=== PATIENT | male | born 1950 | race African-American/Black ===

== ENCOUNTER 2018-10-04 15:00 | Emergency (ER) | payer MEDICARE, MEDICAID ==
[~2018-10-04] VITALS: Ht 172.7 cm; Wt 66.0 kg
[2018-10-04] MEDS ORDERED: HYDR118S9 PO (15:11)
[2018-10-04] MEDS ORDERED: ALPR1TAB2 PO (15:11)
[2018-10-05] MEDS ORDERED: TAMSULOSIN HCL 0.4MG SR CAPSULE PO ONE
[2018-10-05 00:43] LABS: CLARITY URINE TURBID (CLEAR); COLOR URINE YELLOW (YELLOW); KETONES URINE NEGATIVE (NEGATIVE); LEUKOCYTE ESTERASE URINE NEGATIVE (NEGATIVE); NITRITE URINE NEGATIVE (NEGATIVE); OCCULT BLOOD URINE NEGATIVE (NEGATIVE); PH URINE 7.5 (4.5-8.0); PROTEIN URINE NEGATIVE (NEGATIVE); SPECIFIC GRAVITY URINE 1.021 (1.005-1.030)
[2018-10-05 01:25] LABS: BASOPHILS % 0.4 % (0.0-2.0); EOSINOPHILS % 1.3 % (0.0-5.0); LYMPHOCYTES % 25.2 % (20.0-50.0); MEAN CORPUSCULAR HEMOGLOBIN 35.1 pg (28.0-32.0); MEAN CORPUSCULAR VOLUME 105.3 fL (80.0-94.0); MEAN PLATELET VOLUME 9.6 fl (7.4-10.4); MONOCYTES % 6.4 % (2.0-8.0); NEUTROPHILS % 66.7 % (40.0-76.0); PLATELET 246 x1000/uL (130-400); RED BLOOD CELL COUNT 3.98 mill/uL (4.7-6.1); RED CELL DISTRIBUTION WIDTH 14.1 % (11.6-14.6)
[2018-10-05 01:29] LABS: CHLORIDE 104 mEq/L (98-107)
[2018-10-05] MEDS ORDERED: ACETAMINOPHEN 325MG TABLET PO ONE (01:45)
[2018-10-05 01:46] LABS: INR 1.1; PARTIAL THROMBOPLASTIN TIME 27.5 sec (23.4-31.0); PROTHROMBIN TIME 10.7 sec (9.1-11.1)
[2018-10-05] MEDS ORDERED: CEPHALEXIN 250MG CAPSULE PO ONE (02:00)
[2018-10-05 02:10] VITALS: BP 137/77
== END 2018-10-05 02:25 | disposition home or self-care (01) ==
LOC: ER 15:00
DX: R32 Unspecified urinary incontinence (principal); R35.0 Frequency of micturition; F41.9 Anxiety disorder, unspecified; I51.9 Heart disease, unspecified
CPT/HCPCS: 36415; 80048; 87077; 87186; 99284

== ENCOUNTER 2019-01-15 15:53 | Emergency (ER) | payer MEDICAID, MEDICARE ==
[~2019-01-15] VITALS: Ht 165.1 cm; Wt 69.0 kg
[~2019-01-15 15:53] MED LIST: ALPR1TAB2 PO; HYDR118S9 PO
[2019-01-15 21:06] VITALS: BP 130/84
== END 2019-01-15 22:30 | disposition left against medical advice (07) ==
LOC: ER 16:00
DX: Z53.21 Procedure and treatment not carried out due to patient leaving prior to being seen by health care provider (principal)

== ENCOUNTER 2019-06-06 13:06 | Inpatient (IN) | payer MEDICARE, MEDICAID ==
[~2019-06-06] VITALS: Ht 172.7 cm; Wt 65.8 kg
[2019-06-06] MEDS ORDERED: MORPHINE SULFATE 4 MG/ML CPJ (NOT FOR IM USE) IV STA (14:57)
[2019-06-06] MEDS ORDERED: SODIUM CHLORIDE 0.9% 1,000 ML IV ONE (14:57)
[2019-06-06] MEDS ORDERED: ONDANSETRON HCL 4MG/2ML INJ IV STA (14:57)
[2019-06-06] MEDS ORDERED: CEFTRIAXONE 1 G PREMIX 50 ML IV ONE (15:00)
[2019-06-06] MEDS ORDERED: VANCOMYCIN 1 G PREMIX 200 ML IV SCH (15:00)
[2019-06-06 15:36] LABS: BASOPHILS % 0.5 % (0.0-2.0); EOSINOPHILS % 1.2 % (0.0-5.0); HEMATOCRIT. 46.7 % (42.0-52.0); HEMOGLOBIN. 15.9 g/dL (14.0-18.0); LYMPHOCYTES % 16.7 % (20.0-50.0); MEAN CORPUSCULAR HEMOGLOBIN 34.4 pg (28.0-32.0); MEAN PLATELET VOLUME 8.5 fl (7.4-10.4); MONOCYTES % 5.3 % (2.0-8.0); NEUTROPHILS % 76.3 % (40.0-76.0); PLATELET 204 x1000/uL (130-400); RED BLOOD CELL COUNT 4.62 mill/uL (4.7-6.1); RED CELL DISTRIBUTION WIDTH 13.7 % (11.6-14.6)
[2019-06-06 15:42] LABS: CHLORIDE 107 mEq/L (98-107)
[2019-06-06] MEDS ORDERED: ENOXAPARIN 60MG/0.6ML SYR SUBCUT ONE (15:45)
[2019-06-06 15:52] LABS: D-DIMER 12.28 mg/L FEU (<0.50)
[2019-06-06] MEDS ORDERED: ACETAMINOPHEN 325MG TABLET PO PRN (20:00)
[2019-06-06] MEDS ORDERED: ONDANSETRON HCL 4MG/2ML INJ IV PRN (20:00)
[2019-06-06] MEDS ORDERED: CLONIDINE 0.1MG TABLET PO PRN (20:00)
[2019-06-06] MEDS ORDERED: MAGNESIUM/ALUMINUM HYDROXIDE/SIMETHICONE 30ML UDC PO PRN (20:00)
[2019-06-06 22:30] VITALS: BP 113/87
[2019-06-06 22:35] VITALS: BP 113/85
[2019-06-06] MEDS: ENOXAPARIN 60MG/0.6ML SYR SUBCUT SCH (23:11)
[2019-06-07] VITALS: BP 117/77
[2019-06-07 04:00] VITALS: BP 150/57
[2019-06-07 06:58] LABS: CHLORIDE 106 mEq/L (98-107)
[2019-06-07 07:03] LABS: BASOPHILS % 0.6 % (0.0-2.0); HEMATOCRIT. 38.6 % (42.0-52.0); HEMOGLOBIN. 13.1 g/dL (14.0-18.0); MEAN CORPUSCULAR HEMOGLOBIN 34.5 pg (28.0-32.0); MEAN CORPUSCULAR VOLUME 101.5 fL (80.0-94.0); MEAN PLATELET VOLUME 8.4 fl (7.4-10.4); MONOCYTES % 6.9 % (2.0-8.0); NEUTROPHILS % 54.5 % (40.0-76.0); PLATELET 152 x1000/uL (130-400); RED CELL DISTRIBUTION WIDTH 13.4 % (11.6-14.6)
[2019-06-07 08:00] VITALS: BP 117/77
[2019-06-07] MEDS: ENOXAPARIN 60MG/0.6ML SYR SUBCUT SCH (08:53)
[2019-06-07] MEDS: AMLODIPINE 5MG TABLET PO SCH (11:01)
[2019-06-07 12:00] VITALS: BP 125/69
[2019-06-07] MEDS ORDERED: IOHEXOL-350 100 ML BOTTLE ONE (12:23)
[2019-06-07 14:22] LABS: HEMATOCRIT 39.3 % (42.0-52.0); HEMOGLOBIN 13.5 g/dL (14.0-18.0)
[2019-06-07 16:00] VITALS: BP 128/70
[2019-06-07] MEDS: RIVAROXABAN 20 MG TABLET PO SCH (16:45)
[2019-06-07 20:00] VITALS: BP 115/61
[2019-06-07] MEDS: ATORVASTATIN CALCIUM 10MG TABLET PO SCH (20:19)
[2019-06-08] VITALS: BP 118/68
[2019-06-08 04:00] VITALS: BP 120/79
[2019-06-08 06:53] LABS: BASOPHILS % 0.8 % (0.0-2.0); EOSINOPHILS % 3.3 % (0.0-5.0); HEMATOCRIT. 38.9 % (42.0-52.0); HEMOGLOBIN. 13.3 g/dL (14.0-18.0); LYMPHOCYTES % 26.3 % (20.0-50.0); MEAN CORPUSCULAR VOLUME 99.9 fL (80.0-94.0); MEAN PLATELET VOLUME 7.9 fl (7.4-10.4); MONOCYTES % 7.5 % (2.0-8.0); NEUTROPHILS % 62.1 % (40.0-76.0); PLATELET 173 x1000/uL (130-400); RED BLOOD CELL COUNT 3.89 mill/uL (4.7-6.1); RED CELL DISTRIBUTION WIDTH 13.3 % (11.6-14.6)
[2019-06-08 07:31] LABS: CHLORIDE 105 mEq/L (98-107)
[2019-06-08 07:41] LABS: HDL CHOLESTEROL 63 mg/dL (40-59)
[2019-06-08 07:43] LABS: LDL CHOLESTEROL 74 mg/dL (5-100)
[2019-06-08 08:00] VITALS: BP 115/70
[2019-06-08] MEDS: AMLODIPINE 5MG TABLET PO SCH (08:42)
[2019-06-08] MEDS: RIVAROXABAN 20 MG TABLET PO SCH (08:42)
[2019-06-08 08:49] LABS: *AMPHETAMINES SCREEN URINE NEGATIVE (NEGATIVE); *BARBITURATES SCREEN URINE NEGATIVE (NEGATIVE); *BENZODIAZEPINES SCREEN URINE NEGATIVE (NEGATIVE); *COCAINE SCREEN URINE NEGATIVE (NEGATIVE)
[2019-06-08 08:50] LABS: CANNABINOID URINE SCREEN NEGATIVE (NEGATIVE); METHADONE URINE SCREEN NEGATIVE (NEGATIVE); OPIATES URINE SCREEN NEGATIVE (NEGATIVE); PHENCYCLIDINE URINE SCREEN NEGATIVE (NEGATIVE)
[2019-06-08] MEDS: HYDROCODONE/ACETAMINOPHEN 5/325MG TABLET PO PRN ×2 (10:16→21:53)
[2019-06-08 12:00] VITALS: BP 122/68
[2019-06-08] MEDS ORDERED: HEPARIN BOLUS PRN aPTT 37-44 IV (12:10)
[2019-06-08] MEDS ORDERED: HEPARIN 80 UNITS/KG BOLUS IV SCH (12:10)
[2019-06-08] MEDS ORDERED: HEPARIN 25,000 UNITS PREMIX 500 ML IV SCH (12:10)
[2019-06-08] MEDS ORDERED: HEPARIN BOLUS PRN aPTT <36 IV (12:10)
[2019-06-08 16:00] VITALS: BP 125/69
[2019-06-08 20:56] VITALS: BP 117/69
[2019-06-08] MEDS: ATORVASTATIN CALCIUM 10MG TABLET PO SCH (21:42)
[2019-06-09 00:54] VITALS: BP 122/72
[2019-06-09 04:00] VITALS: BP 101/62
[2019-06-09 07:03] LABS: CHLORIDE 104 mEq/L (98-107)
[2019-06-09 07:12] LABS: BASOPHILS % 0.7 % (0.0-2.0); EOSINOPHILS % 3.5 % (0.0-5.0); HEMATOCRIT. 38.3 % (42.0-52.0); HEMOGLOBIN. 13.2 g/dL (14.0-18.0); LYMPHOCYTES % 40.3 % (20.0-50.0); MEAN CORPUSCULAR HEMOGLOBIN 34.6 pg (28.0-32.0); MEAN CORPUSCULAR VOLUME 100.2 fL (80.0-94.0); MEAN PLATELET VOLUME 8.2 fl (7.4-10.4); NEUTROPHILS % 48.5 % (40.0-76.0); PLATELET 168 x1000/uL (130-400); RED BLOOD CELL COUNT 3.82 mill/uL (4.7-6.1); RED CELL DISTRIBUTION WIDTH 13.4 % (11.6-14.6)
[2019-06-09 08:00] VITALS: BP 107/69
[2019-06-09] MEDS: AMLODIPINE 5MG TABLET PO SCH (09:00)
[2019-06-09] MEDS ORDERED: ALPRAZOLAM 0.25 MG TABLET PO PRN (10:45)
[2019-06-09 12:00] VITALS: BP 109/69
[2019-06-09] MEDS ORDERED: ASPIRIN 81MG EC TABLET PO SCH (12:00)
[2019-06-09] MEDS: HYDROCODONE/ACETAMINOPHEN 5/325MG TABLET PO PRN (14:22)
[2019-06-09 16:00] VITALS: BP_SYST 103; BP_SYST 149; BP_DIAS 63; BP_DIAS 82
[2019-06-09 16:47] LABS: CARCINO EMBRYONIC ANTIGEN 4.8 ng/ml; PROSTRATE SPECIFIC AG TOTAL 0.51 ng/mL (0.0-4.0)
[2019-06-09] MEDS: RIVAROXABAN 15 MG TABLET PO SCH (18:15)
[2019-06-09 20:00] VITALS: BP 123/76
[2019-06-09] MEDS: ATORVASTATIN CALCIUM 10MG TABLET PO SCH (21:13)
[2019-06-10 00:05] VITALS: BP 125/74
[2019-06-10 04:00] VITALS: BP 100/62
[2019-06-10] MEDS: RIVAROXABAN 15 MG TABLET PO SCH (04:15)
[2019-06-10 06:34] LABS: BASOPHILS % 0.8 % (0.0-2.0); EOSINOPHILS % 3.6 % (0.0-5.0); HEMATOCRIT. 40.2 % (42.0-52.0); LYMPHOCYTES % 28.8 % (20.0-50.0); MEAN CORPUSCULAR HEMOGLOBIN 34.8 pg (28.0-32.0); MEAN CORPUSCULAR VOLUME 100.3 fL (80.0-94.0); MEAN PLATELET VOLUME 7.9 fl (7.4-10.4); MONOCYTES % 8.2 % (2.0-8.0); NEUTROPHILS % 58.6 % (40.0-76.0); PLATELET 194 x1000/uL (130-400); RED BLOOD CELL COUNT 4.01 mill/uL (4.7-6.1); RED CELL DISTRIBUTION WIDTH 13.2 % (11.6-14.6)
[2019-06-10 06:41] LABS: CHLORIDE 103 mEq/L (98-107)
[2019-06-10 08:00] VITALS: BP 100/67
[2019-06-10] MEDS: AMLODIPINE 5MG TABLET PO SCH (09:00)
[2019-06-10] MEDS: HYDROCODONE/ACETAMINOPHEN 5/325MG TABLET PO PRN ×2 (11:15→19:07)
[2019-06-10 12:00] VITALS: BP 117/74
[2019-06-10] MEDS: APIXABAN 5 MG TABLET PO SCH ×2 (14:24→23:11)
[2019-06-10 16:00] VITALS: BP 115/68
[2019-06-10] MEDS ORDERED: APIXABAN 5 MG TABLET PO SCH (17:00)
[2019-06-10 20:00] VITALS: BP 115/65
[2019-06-10] MEDS: ATORVASTATIN CALCIUM 10MG TABLET PO SCH (20:21)
[2019-06-11] VITALS: BP 118/75
[2019-06-11 04:00] VITALS: BP 116/69
[2019-06-11 07:42] LABS: BASOPHILS % 0.8 % (0.0-2.0); EOSINOPHILS % 3.9 % (0.0-5.0); HEMATOCRIT. 45.6 % (42.0-52.0); HEMOGLOBIN. 15.6 g/dL (14.0-18.0); LYMPHOCYTES % 32.4 % (20.0-50.0); MEAN CORPUSCULAR HEMOGLOBIN 34.7 pg (28.0-32.0); MEAN PLATELET VOLUME 8.1 fl (7.4-10.4); MONOCYTES % 8.4 % (2.0-8.0); NEUTROPHILS % 54.5 % (40.0-76.0); PLATELET 207 x1000/uL (130-400); RED BLOOD CELL COUNT 4.51 mill/uL (4.7-6.1); RED CELL DISTRIBUTION WIDTH 13.5 % (11.6-14.6)
[2019-06-11 07:57] LABS: CHLORIDE 101 mEq/L (98-107)
[2019-06-11 08:00] VITALS: BP 112/72
[2019-06-11 12:00] VITALS: BP 110/71
[2019-06-11] MEDS ORDERED: FENTANYL CITRATE/PF 50MCG/ML 2ML VIAL ONE (12:56)
[2019-06-11] MEDS ORDERED: MIDAZOLAM HCL 2 MG/2 ML VIAL ONE (12:56)
[2019-06-11] MEDS ORDERED: LIDOCAINE HCL 2% JELLY 5ML ONE (12:56)
[2019-06-11] MEDS ORDERED: TETRACAINE/BENZOCAINE/BUTAMBEN 20 GM SPRAY MM ONE (12:58)
[2019-06-11] MEDS ORDERED: IODIXANOL 320MG/ML 100 ML BOTTLE IV ONE (13:09)
[2019-06-11 16:00] VITALS: BP 149/81
[2019-06-11 20:00] VITALS: BP 122/75
[2019-06-11] MEDS: APIXABAN 5 MG TABLET PO SCH (20:56)
[2019-06-11] MEDS: HYDROCODONE/ACETAMINOPHEN 5/325MG TABLET PO PRN (20:56)
[2019-06-11] MEDS: ATORVASTATIN CALCIUM 10MG TABLET PO SCH (20:56)
[2019-06-12] VITALS: BP 114/69
[2019-06-12 04:00] VITALS: BP 109/71
[2019-06-12] MEDS: AMLODIPINE 5MG TABLET PO SCH (08:20)
[2019-06-12] MEDS: HYDROCODONE/ACETAMINOPHEN 5/325MG TABLET PO PRN (08:26)
[2019-06-12] MEDS: APIXABAN 5 MG TABLET PO SCH (08:27)
[2019-06-12 11:41] VITALS: BP 106/63
[2019-06-18] MEDS ORDERED: APIXABAN 5 MG TABLET PO SCH (09:00)
== END 2019-06-12 13:29 | disposition home or self-care (01) | DRG 175 ==
LOC: ER 13:06 → 7WST 17:17 → CANRESERV 19:40 → ENRESERV 19:40 → SUPCPDRO 19:53 → EDBEDREQSVC 20:55 → EDBEDREQTM 20:55 → ENRESERV 21:09
PROVIDERS: ADMIT Internal Medicine Nephrology; ATTEND Internal Medicine Nephrology
PROC: B24BZZ4 Ultrasonography of Heart with Aorta, Transesophageal (ICD-10-PCS; principal; 2019-06-10)
DX: I26.99 Other pulmonary embolism without acute cor pulmonale (principal); J96.00 Acute respiratory failure, unspecified whether with hypoxia or hypercapnia; I82.411 Acute embolism and thrombosis of right femoral vein; E44.0 Moderate protein-calorie malnutrition; I82.431 Acute embolism and thrombosis of right popliteal vein; E78.5 Hyperlipidemia, unspecified; I25.10 Atherosclerotic heart disease of native coronary artery without angina pectoris; I11.9 Hypertensive heart disease without heart failure; K21.9 Gastro-esophageal reflux disease without esophagitis; F41.9 Anxiety disorder, unspecified; J30.9 Allergic rhinitis, unspecified; R00.1 Bradycardia, unspecified; Z60.2 Problems related to living alone; F10.10 Alcohol abuse, uncomplicated; Z95.5 Presence of coronary angioplasty implant and graft; Z79.82 Long term (current) use of aspirin; I25.2 Old myocardial infarction; Z91.19 Patient's noncompliance with other medical treatment and regimen; Z91.14 Patient's other noncompliance with medication regimen; Z68.22 Body mass index [BMI] 22.0-22.9, adult; Z79.01 Long term (current) use of anticoagulants; Z79.899 Other long term (current) drug therapy; Z82.3 Family history of stroke; Z82.49 Family history of ischemic heart disease and other diseases of the circulatory system; Z87.891 Personal history of nicotine dependence; Z80.8 Family history of malignant neoplasm of other organs or systems
CPT/HCPCS: 36415; 71045; 71275; 80048; 80061; 80305; 82105; 82270; 82378; 83605; 83735; 83880; 84153; 84443; 84484; 85014; 85018; 85379; 93005; 93306; 93312; 93970; 96365; 99291; J0696; J1644; J1650; J2250; J2270; J2405; J3010; J3370; J7030; Q9967; G0103

== ENCOUNTER 2019-09-16 12:57 | Emergency (ER) | payer MEDICARE, MEDICAID ==
[~2019-09-16] VITALS: Ht 172.7 cm; Wt 67.0 kg
[2019-09-16] MEDS ORDERED: IBUPROFEN 800MG TABLET PO ONE (17:00)
[2019-09-16 18:36] LABS: BASOPHILS % 0.5 % (0.0-2.0); EOSINOPHILS % 1.9 % (0.0-5.0); HEMATOCRIT. 43.3 % (42.0-52.0); HEMOGLOBIN. 14.5 g/dL (14.0-18.0); LYMPHOCYTES % 27.7 % (20.0-50.0); MEAN CORPUSCULAR HEMOGLOBIN 33.9 pg (28.0-32.0); MEAN CORPUSCULAR VOLUME 101.6 fL (80.0-94.0); MEAN PLATELET VOLUME 8.1 fl (7.4-10.4); MONOCYTES % 7.5 % (2.0-8.0); NEUTROPHILS % 62.4 % (40.0-76.0); PLATELET 202 x1000/uL (130-400); RED BLOOD CELL COUNT 4.26 mill/uL (4.7-6.1); RED CELL DISTRIBUTION WIDTH 14.5 % (11.6-14.6)
[2019-09-16 18:39] LABS: CHLORIDE 105 mEq/L (98-107)
[2019-09-16 20:22] VITALS: BP 130/70
== END 2019-09-16 20:35 | disposition home or self-care (01) ==
LOC: ER 12:57
DX: G89.29 Other chronic pain (principal); M79.10 Myalgia, unspecified site; I25.10 Atherosclerotic heart disease of native coronary artery without angina pectoris; F17.200 Nicotine dependence, unspecified, uncomplicated; F12.10 Cannabis abuse, uncomplicated; Z79.899 Other long term (current) drug therapy
CPT/HCPCS: 36415; 71045; 83880; 84484; 93005; 99284

== ENCOUNTER 2020-07-01 11:49 | Emergency (ER) | payer MEDICARE, MEDICAID ==
[~2020-07-01] VITALS: Ht 172.7 cm; Wt 64.0 kg
[2020-07-01] MEDS ORDERED: HYDROCODONE/ACETAMINOPHEN 5/325MG TABLET PO ONE (12:45)
[2020-07-01] MEDS ORDERED: ONDANSETRON 4MG ODT PO ONE (12:45)
[2020-07-01 15:00] VITALS: BP 112/80
== END 2020-07-01 15:00 | disposition home or self-care (01) ==
LOC: ER 11:49
DX: S49.81XA Other specified injuries of right shoulder and upper arm, initial encounter (principal); V19.3XXA Pedal cyclist (driver) (passenger) injured in unspecified nontraffic accident, initial encounter; Y93.55 Activity, bike riding; Y92.9 Unspecified place or not applicable
CPT/HCPCS: 73030; 99283; Q0162

== ENCOUNTER 2024-11-25 11:58 | Emergency (ER) | payer MEDICARE, BC ==
[~2024-11-25] VITALS: Ht 177.8 cm; Wt 72.0 kg
[2024-11-25 12:00] VITALS: BP 118/77; PULSE 82; RESP 18; TEMP 37.6; O2SAT 96
[2024-11-25] MEDS ORDERED: CEPH500C2 MT (14:53)
[2024-11-25] MEDS ORDERED: SULF1TAB48 MT (14:53)
[2024-11-25] MEDS ORDERED: BO1 TP (14:53)
== END 2024-11-25 16:03 | disposition left against medical advice (07) ==
LOC: ER 11:58
DX: S60.450A Superficial foreign body of right index finger, initial encounter (principal); F12.90 Cannabis use, unspecified, uncomplicated; Z98.890 Other specified postprocedural states; W45.8XXA Other foreign body or object entering through skin, initial encounter; Y93.89 Activity, other specified; Y92.89 Other specified places as the place of occurrence of the external cause; Y99.8 Other external cause status
CPT/HCPCS: 99284

== ENCOUNTER 2025-07-15 21:15 | Inpatient (IN) | payer MEDICARE, MEDICAID ==
[~2025-07-15] VITALS: Ht 167.6 cm; Wt 67.2 kg
[~2025-07-15 21:15] MED LIST changes: +BO1 TP; +CEPH500C2 MT; +SULF1TAB48 MT
[2025-07-15 21:33] VITALS: O2SAT 97
[2025-07-15] MEDS ORDERED: HEPARIN 25,000 UNITS PREMIX 250 ML IV SCH (23:15)
[2025-07-15] MEDS ORDERED: HEPARIN 5000 UNITS/ML VIAL IV ONE (23:15)
[2025-07-15] MEDS: IOHEXOL-350 100 ML BOTTLE ONE (23:16)
[2025-07-15] MEDS: SODIUM CHLORIDE 0.9% (SEPSIS BOLUS) IV ONE (23:25)
[2025-07-15] MEDS: CEFTRIAXONE 1GM/50ML 50 ML IV ONE (23:36)
[2025-07-15 23:52] LABS: INR 1.0
[2025-07-15 23:55] LABS: TROPONIN I HIGH SENSITIVITY 10 ng/L (3.0-53)
[2025-07-16] VITALS (7 sets, daily range): BP systolic 103–165; BP diastolic 58–102; PULSE 72–81; RESP 15–20; TEMP 36.3–36.5292; O2SAT 93–97
[2025-07-16 00:09] LABS: BASOPHILS % 0.4 % (0.0-2.0); EOSINOPHILS % 0.3 % (0.0-5.0); HEMATOCRIT. 37.8 % (42.0-52.0); HEMOGLOBIN. 12.8 g/dL (14.0-18.0); LYMPHOCYTES % 12.5 % (20.0-50.0); MEAN PLATELET VOLUME 7.5 fl (7.4-10.4); MONOCYTES % 7.8 % (2.0-8.0); NEUTROPHILS % 79.0 % (40.0-76.0); PLATELET 264 x1000/uL (130-400); RED BLOOD CELL COUNT 3.79 mill/uL (4.7-6.1); RED CELL DISTRIBUTION WIDTH 13.4 % (11.6-14.6)
[2025-07-16 00:48] LABS: CREATININE 0.7 mg/dL (0.6-1.3); UREA NITROGEN BLOOD 9 mg/dL (9-23)
[2025-07-16] MEDS: AZITHROMYCIN 500MG/250ML 250 ML IV ONE (00:52)
[2025-07-16] MEDS ORDERED: ACETAMINOPHEN 325MG TABLET PO PRN (01:00)
[2025-07-16] MEDS ORDERED: DOCUSATE SODIUM 100MG CAPSULE PO PRN (01:00)
[2025-07-16] MEDS ORDERED: AZITHROMYCIN 250 MG in DEXT 5% WATER 250 ML IV SCH (01:00)
[2025-07-16] MEDS ORDERED: ONDANSETRON HCL 4MG/2ML INJ IV PRN (01:00)
[2025-07-16] MEDS ORDERED: MAGNESIUM/ALUMINUM HYDROXIDE/SIMETHICONE 30ML UDC PO PRN (01:00)
[2025-07-16] MEDS: HEPARIN 80 UNITS/KG BOLUS IV SCH (01:44)
[2025-07-16] MEDS: HEPARIN 25,000 UNITS PREMIX 250 ML IV SCH (01:51)
[2025-07-16] MEDS: PANTOPRAZOLE SODIUM 40 MG/VIAL IV SCH (02:04)
[2025-07-16] MEDS ORDERED: HEPARIN BOLUS PRN aPTT 37-44 IV (06:30)
[2025-07-16] MEDS ORDERED: HEPARIN BOLUS PRN aPTT <36 IV (06:30)
[2025-07-16] MEDS: TAMSULOSIN HCL 0.4MG SR CAPSULE PO SCH (10:33)
[2025-07-16 12:27] LABS: BASOPHILS % 0.4 % (0.0-2.0); EOSINOPHILS % 0.7 % (0.0-5.0); HEMATOCRIT. 42.5 % (42.0-52.0); HEMOGLOBIN. 14.4 g/dL (14.0-18.0); LYMPHOCYTES % 16.2 % (20.0-50.0); MEAN PLATELET VOLUME 8.1 fl (7.4-10.4); MONOCYTES % 7.0 % (2.0-8.0); NEUTROPHILS % 75.7 % (40.0-76.0); PLATELET 303 x1000/uL (130-400); RED BLOOD CELL COUNT 4.23 mill/uL (4.7-6.1); RED CELL DISTRIBUTION WIDTH 13.5 % (11.6-14.6)
[2025-07-16 12:41] LABS: TROPONIN I HIGH SENSITIVITY 10 ng/L (3.0-53)
[2025-07-16 12:42] LABS: CREATININE 0.7 mg/dL (0.6-1.3); UREA NITROGEN BLOOD 6 mg/dL (9-23)
[2025-07-16 12:43] LABS: LACTATE DEHYDROGENASE 180 IU/L (120-246)
[2025-07-16 12:46] LABS: FOLIC ACID (FOLATE) SERUM 9.52 ng/mL (>5.38); VITAMIN B12 SERUM 952 pg/mL (211-911)
[2025-07-16 16:31] LABS: CLARITY URINE CLEAR (CLEAR); COLOR URINE YELLOW (YELLOW); GLUCOSE URINE NEGATIVE (NEGATIVE); KETONES URINE NEGATIVE (NEGATIVE); LEUKOCYTE ESTERASE URINE 2+ (NEGATIVE); NITRITE URINE POSITIVE (NEGATIVE); OCCULT BLOOD URINE 2+ (NEGATIVE); PH URINE 5.5 (4.5-8.0); PROTEIN URINE TRACE (NEGATIVE); SPECIFIC GRAVITY URINE 1.033 (1.005-1.030); UROBILINOGEN URINE 0.2 E.U./dL (0.2-1.0)
[2025-07-16 16:40] LABS: *AMPHETAMINES SCREEN URINE NEGATIVE (NEGATIVE); *BARBITURATES SCREEN URINE NEGATIVE (NEGATIVE); *BENZODIAZEPINES SCREEN URINE NEGATIVE (NEGATIVE); *COCAINE SCREEN URINE PRESUMPTIVE POSITIVE (NEGATIVE); BACTERIA URINE 1+; METHADONE URINE SCREEN NEGATIVE (NEGATIVE); OPIATES URINE SCREEN NEGATIVE (NEGATIVE); SQUAMOUS EPITHELIAL CELL URINE FEW /lpf (RARE/1+)
[2025-07-16 16:41] LABS: CANNABINOID URINE SCREEN PRESUMPTIVE POSITIVE (NEGATIVE); ECSTASY MDMA SCREEN URINE NEGATIVE (NEGATIVE); PHENCYCLIDINE URINE SCREEN NEGATIVE (NEGATIVE)
[2025-07-16] MEDS: CEFTRIAXONE 1GM/50ML 50 ML IV SCH (18:32)
[2025-07-16] MEDS: HEPARIN BOLUS PRN aPTT <36 IV SCH (18:32)
[2025-07-16] MEDS ORDERED: CEFTRIAXONE 1GM/50ML 50 ML IV SCH (23:00)
[2025-07-16] MEDS: AZITHROMYCIN 500MG in D5W 250ML IV SCH (23:47)
[2025-07-17] VITALS: BP 113/66; PULSE 65; RESP 19; TEMP 36.1; O2SAT 90
[2025-07-17] MEDS: ACETAMINOPHEN 325MG TABLET PO PRN (00:03)
[2025-07-17 04:00] VITALS: BP 106/65; PULSE 60; RESP 20; TEMP 36.3; O2SAT 97
[2025-07-17 08:00] VITALS: BP 126/68; PULSE 61; RESP 16; TEMP 36.6; O2SAT 95
[2025-07-17] MEDS ORDERED: APIX5TAB MT (09:55)
[2025-07-17] MEDS ORDERED: ASPI-1497 MT (09:58)
[2025-07-17 12:00] VITALS: BP 111/61; PULSE 64; RESP 16; TEMP 36.4; O2SAT 99
[2025-07-17 12:54] VITALS: BP 111/61; PULSE 64; RESP 16; TEMP 97.6
[2025-07-17 13:16] LABS: BASOPHILS % 0.8 % (0.0-2.0); EOSINOPHILS % 1.8 % (0.0-5.0); HEMATOCRIT. 37.5 % (42.0-52.0); HEMOGLOBIN. 12.6 g/dL (14.0-18.0); LYMPHOCYTES % 32.0 % (20.0-50.0); MEAN PLATELET VOLUME 8.0 fl (7.4-10.4); MONOCYTES % 6.5 % (2.0-8.0); NEUTROPHILS % 58.9 % (40.0-76.0); PLATELET 270 x1000/uL (130-400); RED BLOOD CELL COUNT 3.78 mill/uL (4.7-6.1); RED CELL DISTRIBUTION WIDTH 13.2 % (11.6-14.6)
[2025-07-17 13:23] LABS: BILIRUBIN DIRECT < 0.1 mg/dL (<=3.0)
[2025-07-17 13:24] LABS: BILIRUBIN TOTAL 0.2 mg/dL (0.1-1.0); PROTEIN TOTAL 6.5 g/dL (6.0-8.3)
[2025-07-17 13:27] LABS: CREATININE 0.7 mg/dL (0.6-1.3); T4 FREE 0.82 ng/dL (0.89-1.76)
[2025-07-17 13:28] LABS: TRIGLYCERIDE 96 mg/dL (0-150); UREA NITROGEN BLOOD 6 mg/dL (9-23)
[2025-07-17 13:29] LABS: ASPARTATE AMINOTRANSFERASE < 8 IU/L (<34); LDL CHOLESTEROL 100 mg/dL (5-100)
[2025-07-17 13:30] LABS: PHOSPHORUS 2.8 mg/dL (2.5-4.9)
== END 2025-07-17 14:30 | disposition left against medical advice (07) | DRG 175 ==
LOC: ER 21:15 → 6WST 23:21 → EDBEDREQ 23:25 → EDBEDREQTM 23:25 → ENRESERV 07-16 06:50
PROVIDERS: ADMIT Internal Medicine; ATTEND Internal Medicine
DX: I26.99 Other pulmonary embolism without acute cor pulmonale (principal); J18.9 Pneumonia, unspecified organism; I82.433 Acute embolism and thrombosis of popliteal vein, bilateral; I11.0 Hypertensive heart disease with heart failure; D50.9 Iron deficiency anemia, unspecified; I50.9 Heart failure, unspecified; N40.0 Benign prostatic hyperplasia without lower urinary tract symptoms; Z53.21 Procedure and treatment not carried out due to patient leaving prior to being seen by health care provider; F03.90 Unspecified dementia, unspecified severity, without behavioral disturbance, psychotic disturbance, mood disturbance, and anxiety; I25.10 Atherosclerotic heart disease of native coronary artery without angina pectoris; Z79.899 Other long term (current) drug therapy; Z95.5 Presence of coronary angioplasty implant and graft
CPT/HCPCS: 36415; 71045; 71275; 80048; 80053; 80061; 80076; 80305; 81003; 82607; 82728; 82746; 83540; 83550; 83605; 83615; 83735; 83880; 84100; 84145; 84439; 84443; 84484; 85025; 85044; 85379; 93005; 93306; 93970; 96360; 99285; 99291; A4606; J0456; J0696; J1644; J2470; J7030; Q9967